=== PATIENT | male | born 1970 | race African-American/Black ===

== ENCOUNTER 2023-02-12 23:16 | Emergency (ER) | payer OTHER ==
[2023-02-13 00:18] VITALS: BP 156/94
== END 2023-02-13 00:18 | disposition home or self-care (01) ==
LOC: ER 23:17
DX: S30.862A Insect bite (nonvenomous) of penis, initial encounter (principal); W57.XXXA Bitten or stung by nonvenomous insect and other nonvenomous arthropods, initial encounter
CPT/HCPCS: 99283